=== PATIENT | male | born 1960 | race Caucasian/White ===

== ENCOUNTER → 2017-05-31 | Outpatient (CLI) | payer BC ==
[~2017-05-31] MED LIST: AMLODIPINE-ATO1 EAC4 PO; ASPIR 8181 MG PO; COZAAR 50 MG TA50 M2 PO; FLECAINIDE ACET50 M1 PO; FLOMAX0.4 MG PO; HYDROCHLOROTH12.5 M1 PO; HYDROCODON-ACE1 EAC5 PO; KRILL OIL500 MG PO; LANSOPRAZOLE30 MG PO; LOSARTAN-HCTZ1 EACH PO; NORVASC10 MG PO; PRADAXA150 MG PO; TOPROL XL25 MG PO; TRAMADOL 50 MG50 MG PO; TYLENOL325 MG PO; VITAMIN D 5050000 I1 PO
== END ==
LOC: CAT 07:12
DX: I48.91 Unspecified atrial fibrillation (principal); R59.9 Enlarged lymph nodes, unspecified

== ENCOUNTER 2017-06-03 06:41 | Observation (INO) | payer BC ==
[2017-06-03] VITALS (10 sets, daily range): BP systolic 111–1114; BP diastolic 63–78
[~2017-06-03] VITALS: Ht 170.2 cm; Wt 139.0 kg
--- NOTE | ~2017-06-03 | P ---
[facility] [place] [address] PROCEDURE REPORT Name: MARINA QUILES Room #: 206-P [facility]#: [id number] Admission: 06/03/17 Attend Phys: Sergio Ackerman MD Discharge: Date of : 62 Report #: [id number] THIS REPORT FOR: //name// CC: Sukumar Ackerman PROCEDURES PERFORMED: 1. AFib ablation. 2. 3D intracardiac mapping. 3. Intracardiac ultrasound. HISTORY OF PRESENT ILLNESS: The patient is a 56-year-old with history of paroxysmal AFib, who has recently had recurrent atrial fibrillation and is here for an ablation. ANESTHESIA: The patient underwent general anesthesia with no anesthesia related complications. PROCEDURE: The patient underwent informed consent where we discussed the details of the procedure including the risks, which include, but are not limited to bleeding, vascular damage, cardiac perforation as well as stroke or CA. He understood these risks and was willing to proceed. As such, the patient was brought to the EP laboratory in a fasting and sedated state, prepped and draped in a sterile fashion. I injected lidocaine to the right femoral groin region and obtained access to the right femoral vein times 3 and I placed a 9-Khmer, 8-Khmer, and 7-Khmer short sheaths using the modified Seldinger technique. Next, under fluoroscopy, I placed a decapolar catheter in the coronary sinus. Of note, this would not sit in the coronary sinus easily and will continue to slip out. I placed intracardiac ultrasound catheter into the right atrium and I could visualize the left atrial appendage, the left inferior pulmonary vein as well as the right superior and right inferior pulmonary veins. There was a nice thin interatrial septum. I had difficulties localizing the left superior pulmonary vein. Next, the patient was systemically heparinized and a transseptal was performed using an SL1 sheath and Driscoll needle. I was able to cross with the SL1 sheath and then I placed a Lasso catheter into the left atrium and I created a detailed 3D geometry of the left atrium. This was merged with the cardiac CT scan. This was used for intracardiac navigation. Next, I exchanged my SL1 sheath for the cryo sheath. Of note, I thought my transseptal was somewhat low, but once I advanced my cryo sheath, it appeared that I was pretty high along the interatrial septum. This made isolation of the veins somewhat more challenging. At times, it seemed like my cryo sheath was not entirely in the left atrium and was sometimes actually in the right atrium. Initially, I had difficulties finding the left superior pulmonary vein, I did an initial freeze, but came off after 30 seconds. I then turned my attention to the left inferior pulmonary vein, which was easier to [facility] [address] [place] [address] PROCEDURE REPORT Name: MARINA QUILES Room #: 206-P [facility] Amalia Haider#: [id number] Admission: 06/03/17 Attend Phys: Sergio Ackerman MD Discharge: Date of : 62 Report #: [id number]. Again, I could not really advance my sheath to the back of the cryoballoon, which made isolation of the inferior vein somewhat challenging. The left inferior vein isolated with a total of 3 freezes. I then searched for the left superior pulmonary vein and although I could not see on an intracardiac ultrasound based on my cardiac CT scan in the intracardiac electrograms, it appeared that I was in the vessel. This vessel isolated after 3 freezes. This was clearly the vein as evidenced by venography. I then turned my attention to the right superior pulmonary vein and this appeared to isolate during the first freeze and I performed a second freeze. Both freezes were 4 minutes in duration. I then turned my attention to the right inferior pulmonary vein. Again, with my very high transseptal getting into this vessel was somewhat challenging, but eventually got my wire in the vessel and this vein isolated within 30 seconds of the first freeze. Therefore, I performed a single freeze. Prior to the ablation, the patient was in atrial fibrillation with a cycle length of 600 milliseconds, QRS duration 95 milliseconds, QT interval 335 milliseconds. After isolating the veins, the patient remained in atrial fibrillation. The patient underwent 200 joule synchronized cardioversion with orthodox of sinus rhythm. The patient with an atrial cycle length of 1030 milliseconds, AR interval 190 milliseconds, QRS duration 95 milliseconds, and QT interval 395 milliseconds. As such, the procedure was concluded. Using intracardiac ultrasound, I verified that there was no pericardial effusion. The patient then received systemic protamine and once the ACT was within acceptable range, all catheters and sheaths were pulled. Hemostasis was obtained. The patient awoke neurologically and hemodynamically intact with no complications and no significant bleeding. CONCLUSIONS: Successful AFib ablation with isolation of the 4 pulmonary veins using cryoablation. By: [id number] Sergio Ackerman MD /nt
--- NOTE | ~2017-06-03 | EKG ---
[address] [address] ELECTROCARDIOGRAM REPORT Name: MARINA QUILES Room #: 206-[facility]#: [id number] Admission: 06/03/17 Attend Phys: Sergio Ackerman MD Discharge: Date of : 62 Report #: [id number] THIS REPORT FOR: //name// [facility] Test Date: 2017-06-03 Test Time: 13:31:44 Pat Name: MARINA QUILES Department: Room: [facility] Gender: M Book Mender: Pavan MIRAMONTES : 1960 Requested By: Sergio Ackerman Order Number: [id number] MD: Sergio Ackerman Measurements Intervals [place] Rate: 77 P: 55 VA: 178 QRS: 24 QRSD: 108 T: 81 QT: 394 QTc: 446 Interpretive Statements Sinus rhythm Abnormal R-wave progression, early transition Compared to ECG 11/26/2015 08:43:26 Atrial fibrillation no longer present Myocardial infarct finding no longer present Electronically Signed On 06-03-2017 21:15:05 CDT by Sergio Ackerman [email or web address] <ELECTRONICALLY SIGNED> By: Sergio Ackerman MD 06/03/17 2115 133 30 Sergio Ackerman MD /EPI
--- NOTE | ~2017-06-03 | EKG ---
[address] [address] ELECTROCARDIOGRAM REPORT Name: MARINA QUILES Room #: 206-P [facility]..#: [id number] Admission: 06/03/17 Attend Phys: Sergio Ackerman MD Discharge: Date of : 62 Report #: [id number] THIS REPORT FOR: //name// 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 : 1960 Requested By: Sergio Ackerman Order Number: [id number] MD: Sergio Ackerman Measurements Intervals [place] Rate: 68 P: 46 NC: 193 QRS: 2 QRSD: 107 T: 33 QT: 411 QTc: 438 Interpretive Statements Sinus rhythm Abnormal R-wave progression, early transition Consider inferior infarct Compared to ECG 06/03/2017 13:31:44 Myocardial infarct finding now present Electronically Signed On 06-04-2017 15:21:33 CDT by Sergio Ackerman [email or web address] <ELECTRONICALLY SIGNED> By: Sergio Ackerman MD 06/04/17 1521 0745 0745 Sergio Ackerman MD /FERNANDA
[2017-06-03 07:13] LABS: ABSOLUTE NEUTROPHILS 4.7 thou/uL (1.4-8.2); BASOPHILS 0.3 % (0.0-2.0); EOSINOPHILS 2.6 % (0.0-3.0); HEMATOCRIT 42.4 % (42.0-52.0); HEMOGLOBIN 14.4 gm/dL (14.0-18.0); LYMPHOCYTES 34.8 % (24.0-44.0); MCH 31.9 pg (26.0-34.0); MCHC 34.1 g/dL (28.0-37.0); MCV 93.7 fL (80.0-100.0); MONOCYTES 9.4 % (1.0-8.0); PLATELET COUNT 280 thou/uL (150-400); POLYS 52.9 % (36.0-66.0); RBC 4.53 mil/uL (4.50-6.00); RDW 13.5 % (10.5-14.5)
[2017-06-03 07:14] LABS: MANUAL DIFF NO
[2017-06-03] MEDS ORDERED: LIPITOR10 MG PO (07:23)
[2017-06-03 07:25] LABS: CALCIUM 9.7 mg/dL (8.5-10.1); CREATININE 1.3 mg/dL (0.7-1.3); POTASSIUM 3.8 mmol/L (3.5-5.1)
[2017-06-03] MEDS ORDERED: LOSARTAN-HCTZ1 EACH PO (07:25)
[2017-06-03] MEDS ORDERED: UNICOMPLEX M TA1 TA1 PO (07:26)
[2017-06-03] MEDS ORDERED: NORCO 10-325 T1 EACH PO (07:26)
[2017-06-03] MEDS ORDERED: FLOMAX0.4 MG PO (07:26)
[2017-06-03 07:27] LABS: APTT 28.6 Seconds (24.5-32.8); PROTIME 10.5 Seconds (9.3-11.4)
[2017-06-03 07:31] LABS: ALBUMIN 3.9 g/dL (3.4-5.0); TOTAL BILIRUBIN 0.5 mg/dL (<0.1-1.0); TOTAL PROTEIN 6.8 g/dL (6.4-8.2)
[2017-06-04 03:57] VITALS: BP 116/65
[2017-06-04 08:02] VITALS: BP 114/68
[2017-06-04] MEDS ORDERED: FLECAINIDE ACET50 M1 PO (09:26)
[2017-06-04 11:14] VITALS: BP 109/62
[2017-06-04 12:08] VITALS: BP 109/62
[2017-06-04 15:20] VITALS: BP 125/71
[2017-06-04 16:31] VITALS: BP 109/62
== END 2017-06-04 16:30 | disposition home or self-care (01) ==
LOC: CATH 06:41 → 2N 13:14
PROVIDERS: Internal Medicine Cardiovascular Disease
DX: I48.91 Unspecified atrial fibrillation (principal); G89.29 Other chronic pain; K21.9 Gastro-esophageal reflux disease without esophagitis; E78.00 Pure hypercholesterolemia, unspecified; Z95.1 Presence of aortocoronary bypass graft; Z87.891 Personal history of nicotine dependence
CPT/HCPCS: 62110; 62900; 64031; 65020; 65040; 70005

== ENCOUNTER 2019-03-06 19:12 | Inpatient (IN) | payer BC ==
[~2019-03-06] VITALS: Ht 172.7 cm; Wt 123.4 kg
[~2019-03-06 19:12] MED LIST changes: +LIPITOR10 MG PO; +NORCO 10-325 T1 EACH PO; +UNICOMPLEX M TA1 TA1 PO
[2019-03-06 19:16] VITALS: BP 103/55
[2019-03-06 19:50] LABS: ABSOLUTE NEUTROPHILS 6.3 thou/uL (1.4-8.2); BASOPHILS 1.1 % (0.0-2.0); EOSINOPHILS 1.7 % (0.0-3.0); HEMATOCRIT 41.9 % (42.0-52.0); HEMOGLOBIN 14.3 gm/dL (14.0-18.0); LYMPHOCYTES 28.2 % (24.0-44.0); MCH 32.4 pg (26.0-34.0); MCHC 34.1 g/dL (28.0-37.0); MCV 94.9 fL (80.0-100.0); MONOCYTES 7.8 % (1.0-8.0); PLATELET COUNT 325 thou/uL (150-400); POLYS 61.2 % (36.0-66.0); RBC 4.42 mil/uL (4.50-6.00); RDW 13.4 % (10.5-14.5); WBC 10.3 thou/uL (4.0-11.0)
[2019-03-06 19:52] LABS: ANION GAP 10 mmol/L (7-16); BUN 19 mg/dL (7-18); CALCIUM 9.5 mg/dL (8.5-10.1); CHLORIDE 104 mmol/L (98-107); CO2 27 mmol/L (21-32); CREATININE 1.6 mg/dL (0.7-1.3); GLUCOSE 132 mg/dL (74-106); POTASSIUM 3.8 mmol/L (3.5-5.1); SODIUM 141 mmol/L (136-145)
[2019-03-06 20:01] LABS: TROPONIN-I <0.06 ng/mL (<0.06)
[2019-03-07] VITALS (17 sets, daily range): BP systolic 90–137; BP diastolic 64–85
--- NOTE | 2019-03-07 01:20 | NUR ---
RECEIVED REPORT FROM ER NURSE. PT ARRIVED TO ROOM 349 AROUND 0015. ADMISSION HX AND ASSESSMENT COMPLETED CHARTED. DENIES ANY PAIN. AFIB ON TELE MONITOR. CARDIZEM GTT INFUSING PER ORDER. IVF INFUSING. DENIES ANY CHEST PAIN OR DIZZINESS. NO MAJOR COMPLAINTS AT THIS TIME. WILL CONTINUE TO MONITOR FURTHER.
--- NOTE | 2019-03-07 04:37 | NUR ---
CARDIZEM GTT STOPPED AROUND 0200 SBP <100. STILL AFIB ON TELE. HR HAS IMPROVED, NOW 90S-110S ON TELE MONITOR. VSS. IVF INFUSING ORDERED. PT SLEEPING AT THIS TIME. PROGRESSING SLOWLY TOWARD POC GOALS. WILL CONTINUE TO MONITOR FURTHER.
[2019-03-07 06:05] LABS: CALCIUM 8.3 mg/dL (8.5-10.1); CREATININE 1.4 mg/dL (0.7-1.3); POTASSIUM 3.5 mmol/L (3.5-5.1)
--- NOTE | 2019-03-07 13:32 | NUR ---
RD consult received for "other". Chart reviewed, admit with afib. High BMI 41.4=extreme class III obesity. On heart healthy diet. Stated he "doesn't follow that" and not really interested in any education. Admits to drinking 2 cases regular soda per week and has recently tried to cut back. Dietary compliance encouraged. Defer further intervention unless pt voices interest. Low nutrition risk
--- NOTE | 2019-03-07 16:57 | NUR ---
pt is A&OX3, pt has restarted diltiazem at 5mg/hr at 1425pm after give po flecainide 100mg dose HR 108-120, PT'vs are stable ( SBP 106-116/63-82MMHG, HR 84-100), PT denies pain,sob and syncope at this time. pt has signed consent for electrical cardioversion if need .pt is eating dinner now.
[2019-03-08] VITALS (11 sets, daily range): BP systolic 105–140; BP diastolic 61–71
--- NOTE | 2019-03-08 06:11 | NUR ---
PATIENT IS ALERT AND ORIENTED. PATIENT IS UP AD [place] DURING DAY AND SBA AT HS. PAITENT HAS BEEN NPO SENSE MIDNIGTH. PAITENT IS PEND POSSIBLE CARDIOVERSION TODAY. PATIENT IS A FIB. PATIENT IS ON DILTIAZEM DRIP. PATIENTS LBM WAS THE . PATIENT AMBULATES WITH A LIMP. PATIENTS PAIN IS TREATED WITH PAIN MEDICATION. PATIENT IS RESTING COMFORTABLY IN BED. WCM. PATIENT IS PROGERSSING TO GOALS.
--- NOTE | 2019-03-08 08:39 | NUR ---
ASSESSMENT: CM REVIEWED CHART AND MET WITH PATIENT AT THE BEDSIDE. PT WAS ADMITTED WITH A FIB RVR. PT REPORTS HE LIVES IN A HOUSE WITH HIS AND MOTHER IN [place]. PT REPORTS HE HAS ABOUT 3 STEPS WITH HANDRAILS TO ENTER AND ABOUT 16 STEPS WITH HANDRAILS TO HIS BEDROOM. PT REPORTS HE IS INDEPENDENT WITH ADLS AND AMBULATION. PT REPORTS HIS SHOWER DOES NOT HAVE A GRAB BAR OR CHAIR BUT STATES HIS MOTHER IN [place] DOES. PT REPORTS HE HAS NOT HAD HH IN THE PAST. CM DISCUSSED ROLE. PT DOES NOT ANTICIPATE HAVING ANY NEEDS AT DISCHARGE.
[2019-03-08 11:04] LABS: CREATININE 1.3 mg/dL (0.7-1.3); POTASSIUM 4.1 mmol/L (3.5-5.1)
[2019-03-08] MEDS ORDERED: TAMBOCOR 100 M100 M1 PO (12:30)
--- NOTE | 2019-03-08 16:50 | NUR ---
Discharge instructions reviewed with patient. He denied further questions. Nurse talked with Dr. Biggs about discharge and instructions. Dr. Biggs expressed to discharge today and have him call for an appointment for 2 weeks with cardiology.
--- NOTE | 2019-03-09 17:21 | EKG ---
[address] [place] [address] ELECTROCARDIOGRAM REPORT Name: MARINA QUILES Room #: 349-I 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: CW : 1960 Requested By: Darrell Martinez Order Number: [id number] MD: Johnny Noriega Measurements Intervals [place] Rate: 131 P: [place]: QRS: -6 QRSD: 98 T: 46 QT: 293 QTc: 433 Interpretive Statements Atrial fibrillation accelerated ventricular response Inferior infarct, old Nonspecific ST-T wave changes Compared to ECG 06/04/2017 07:45:18 Sinus rhythm no longer present Electronically Signed On 03-09-2019 17:21:44 CDT by Johnny Noriega [email or web address] ��������������������������������������������� <ELECTRONICALLY SIGNED> ���������������������������������������� By: Johnny Noriega MD ��������������������������������������������� 03/09/19 1721 19 Johnny Noriega MD /EPI
--- NOTE | 2019-03-11 17:56 | EKG ---
[place] [address] [facility] [place] [address] ELECTROCARDIOGRAM REPORT Name: MARINA QUILES Room #: 349-I [facility] M.R.#: [id number] ������������������ Admission: 03/06/19 ������������������ Attend Phys: Jaguar Biggs MD Discharge: 03/08/19 ������������������ Date of : 62 Report #: [id number] ����������������������������������������������������������������� [id number] THIS REPORT FOR: //name// [facility] Test Date: 2019-03-08 Test Time: 07:51:24 Pat Name: MARINA QUILES Department: Room: 349 I Gender: M Glass Cleaner: Stormy SHELDON : 1960 Requested By: Lalita Veras Order Number: [id number] MD: Amadou Bravo Measurements Intervals [place] Rate: 101 P: IN: QRS: -2 QRSD: 105 T: 31 QT: 367 QTc: 476 Interpretive Statements Atrial fibrillation Small inferior Q waves Compared to ECG 06/04/2017 07:45:18 Inferior Q waves are less prominent Electronically Signed On 03-11-2019 17:56:23 CDT by Amadou Bravo [email or web address] ��������������������������������������������� <ELECTRONICALLY SIGNED> ���������������������������������������� By: Amadou Bravo MD, [facility] ��������������������������������������������� 03/11/19 1756 0751 0751 Amadou Bravo MD, [facility] /EPI
== END 2019-03-08 17:45 | disposition home or self-care (01) | DRG 309 ==
LOC: ER 19:12 → EROBS 22:53 → 3W 22:53 → ENTRNSPT 03-08 17:41 → 3W 03-08 17:45
PROVIDERS: Emergency Medicine; Nurse Practitioner; Nurse Practitioner Family; ADMIT Hospitalist
DX: I48.0 Paroxysmal atrial fibrillation (principal); N17.9 Acute kidney failure, unspecified; Z96.611 Presence of right artificial shoulder joint; Z96.653 Presence of artificial knee joint, bilateral; E78.5 Hyperlipidemia, unspecified; M19.90 Unspecified osteoarthritis, unspecified site; G89.29 Other chronic pain; Z82.49 Family history of ischemic heart disease and other diseases of the circulatory system; Z88.6 Allergy status to analgesic agent; Z87.442 Personal history of urinary calculi; Z87.81 Personal history of (healed) traumatic fracture; Z79.899 Other long term (current) drug therapy
CPT/HCPCS: 10879; 62110; 62900